=== PATIENT | male | born 1990 | race Caucasian/White ===

== ENCOUNTER 2022-06-06 11:01 | Emergency (ER) | payer MEDICAID ==
[~2022-06-06] VITALS: Ht 180.3 cm; Wt 73.9 kg
[2022-06-06 11:15] VITALS: BP_SYST 152
[2022-06-06] MEDS ORDERED: LORA-259 PO (11:20)
[2022-06-06] MEDS ORDERED: LORazepam 1 MG TABLET PO ONE (11:30)
[2022-06-06 11:37] VITALS: BP_SYST 152
== END 2022-06-06 11:36 | disposition home or self-care (01) ==
LOC: SED 11:01
DX: F41.9 Anxiety disorder, unspecified (principal); Z79.899 Other long term (current) drug therapy
CPT/HCPCS: 99283